=== PATIENT | female | born 1980 ===

== ENCOUNTER 2018-01-21 15:28 | Emergency (ER) | payer SELFPAY ==
[2018-01-21 16:28] VITALS: BMI 27.7
[2018-01-21 16:53] LABS: SQUAMOUS EPITHIAL 5 /hpf (0-5); URINE BACTERIA OCC (<OCC); URINE BILIRUBIN NEGATIVE (NEGATIVE); URINE BLOOD NEGATIVE (NEGATIVE); URINE CLARITY SLIGHTY-CLOUDY (Clear); URINE COLOR YELLOW (YELLOW); URINE GLUCOSE (UA) NEG (Normal); URINE LEUKOCYTE ESTERASE MOD Leu/uL (Negative); URINE PROTEIN NEGATIVE (NEGATIVE); URINE UROBILINOGEN 0.2-1.0 mg/dL (0.2-1.0)
--- NOTE | 2018-01-21 17:27 | OBHP ---
Datetime: 01/21/2018 17:17 Admit Comment, IP Provider: [id number] Pt is a 37 yo F IUP @ 26.5wk ULISES is 04/21/18 based on LMP of 07/15/17. Pt here for back pain and headaches. Pt states she starts to have B/L lower back pain and sharp headaches located on the fo rehead since yesterday, Pt was arguing with her boyfriend and now feels depressed. Denies domestic or verbal violence, feels safe to go back home if discharged. Pt denies vaginal bleeding, fevers, dizzi ness, headache, blurry vision, chest pain, SOB, nausea, vomiting, diarrhea, constipation, dysuria; Re ports good movements. PNP: [facility]- Dr. 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 Lungs: clear to auscultation bilaterally, no wheezing, rales or rhonchi Abdomen: Gravid, soft nontender to palpation, + BS Back: mid sacral and B/L lower back tenderness to palpation LE: no edema Psych: Depressed mood Heart Rate: 150, moderate 6-25bpm, category 1, 15x15 Speculum/Bimanual not performed A/P: Pt is a 37 yo F IUP @ 26.5wk here for back pain and headaches -Observe and monitor in OB ED -Monitor heart tracings -Tylenol 650mg Once -Urinalysis- Leuk-Mod, WBC-12, Occasional bacteria -D/c home on Macrobid -ED precautions given if fevers, increased contractions, vaginal bleeding, LOF come back to ED Case reviewed and discussed with Attending Ludmila Elmore M.D. PGY-[address] escalante: I have evaluated the patient independently and I agree with the above Pelvic Type - PN: Adequate Extremities - PN: Normal Abdomen - PN: Normal Back - PN: Abnormal Breast - PN: Not Done Lungs - PN: Normal Heart - PN: Normal Thyroid - PN: Not Done Neurologic - PN: Not Done HEENT - PN: Normal General - PN: Normal FHR - Baseline A Provider: 150 Comments, ACOG Physical Exam: Back: mid sacral, and B/L lower back tenderness to palpation EGA AdmitDate IP: 27.1 Vital Signs Provider: Reviewed; Within Normal Limits IP Chief Complaint: Maternal discomfort NICHD Variability Prov Fetus A: Moderate 6-25bpm NICHD Accel Fetus A IP Provider: 15X15 FHR Category Provider Fetus A: Category I NICHD Decel Fetus A IP Provider: None Genitourinary Exam: Not Done DTRs - PN: Not Done
--- NOTE | 2018-01-21 17:30 | OBDCSUM ---
Datetime: 01/21/2018 17:27 Discharged to, Provider: Home Follow up at, Provider: clinic Disch Instr Activity: Normal activity Disch Instr Diet: Regular Discharge Instructions, Provider: Routine instructions given Discharge Time: 01/21/2018 17:27 Follow up in weeks, Provider: 01/25 Disch Referrals: None Contraception discussed, Prov: No Discharge Diagnosis Prov Other: UTI
[2018-01-21 23:06] VITALS: BP 104/62; PULSE 89; RESP 18; TEMP 97.4; O2SAT 97
== END 2018-01-21 17:46 | disposition home or self-care (01) ==
LOC: H.EROB2 15:28 → H.EROB 15:56 → H.EROB2 17:46
DX: O26.92 Pregnancy related conditions, unspecified, second trimester (principal); M54.5 Low back pain; R51 Headache; Z3A.26 26 weeks gestation of pregnancy

== ENCOUNTER 2018-04-18 16:40 | Emergency (ER) | payer SELFPAY ==
[2018-03-25 18:12] VITALS: BMI 27.7
[2018-04-18 22:05] VITALS: BP 124/81; PULSE 81; TEMP 97.5; O2SAT 99
--- NOTE | 2018-04-19 10:02 | OBHP ---
Datetime: 04/18/2018 17:35 IP Adm Impression: Term, intrauterine IP Admit Plan: Observation/Evaluation Admit Comment, IP Provider: 37 yo with IUP at 39+4 wk based on lmp presents to [facility] with CTX jeffrey 5-6 minutes and loss of mucus plug per the vagina at 1 p.m. Reports she feels well. Denies vagi nal bleeding and loss of fluid per the vagina. Denies chest pain, dyspnea, change in vision, headache , nausea, and vomiting. ROS: negative except for stated above in HPI Obhx: 3 previous NSVDs, no complications. Follows at [facility]- Dr. Abbasi 2009- female 6 lbs 2000 - male 6 lbs 2005- male 6 lbs PMH: Denies PSH: Denies Medications: PNV Allergies: NKDA Social hx: Denies tobacco, alcohol or drug use. Family history: Not significant Labs: from 02/23/18: HIV: negative; GBS: negative; Gc/Cl: negative P.E: Vitally stable at this time. Patient is resting comfortably in her hospital bed. EFM: reactive NST Heart: S1 And S2 appreciated on exam. Lungs: Clear auscultation bilaterally. No wheezes, rhonchi or crackles. Abdomen: Gravid, soft, non-tender to palpation. Normo-active bowel sounds. SVE: 1cm ASSESSMENT/PLAN: 37 yo with IUP of 39+4 wks based on LMP presents for CTX and mucus plug - NST reactive- category 1 tracing; contractions every 8 minute - Patient given labor precautions at this time. - Patient stable for discharge at this time. - Appointment with [facility] 04/22/18. Patient was told to go to that appointment. Discussed with Dr. Ayush Lei, PGY1 Pelvic Type - PN: Adequate Extremities - PN: Normal Abdomen - PN: Normal Back - PN: Normal Breast - PN: Not Done Lungs - PN: Normal Heart - PN: Normal Thyroid - PN: Normal Neurologic - PN: Normal HEENT - PN: Normal General - PN: Normal FHR - Baseline A Provider: 145 EGA AdmitDate IP: 39.4 Vital Signs Provider: Reviewed; Within Normal Limits IP Chief Complaint: Uterine contractions; Maternal discomfort NICHD Variability Prov Fetus A: Moderate 6-25bpm NICHD Accel Fetus A IP Provider: 15X15 FHR Category Provider Fetus A: Category I NICHD Decel Fetus A IP Provider: None Dilatation, Provider: 1 Genitourinary Exam: Normal DTRs - PN: Normal
== END 2018-04-18 17:55 | disposition home or self-care (01) ==
LOC: H.EROB2 16:40
DX: O26.93 Pregnancy related conditions, unspecified, third trimester (principal); R10.2 Pelvic and perineal pain; Z3A.39 39 weeks gestation of pregnancy; O47.1 False labor at or after 37 completed weeks of gestation

== ENCOUNTER 2018-04-19 11:08 | Inpatient (IN) | payer MEDICAID, SELFPAY ==
[2018-04-19 11:42] VITALS: BMI 29.9
--- NOTE | 2018-04-19 11:54 | OBADHP ---
Datetime: 04/19/2018 11:44 Admit Comment, IP Provider: 37yo @ 39w5d reports to the labor and delivery complaining of pelvi c pressure and pain. She denies any vaginal bleeding or leakage of fluid. Patient was seen yesterday for irregular labor. She returns today for same complaints. O; Afebrile Heart: RRR Chest : CTA B/L Abd: Soft, NT, BS- present FHR- Category 1 TOCO: Irregular 2-6 SVE: /-2, Cephalic, Membranes Assessment: Intrauterine at 39wks Labor Reassuring Maternal status. Plan: Admit to labor and delivery Monitor the progress of labor. IP Chief Complaint: Uterine contractions; Maternal discomfort EGA AdmitDate IP: 39.5 IP Adm Impression: Term, intrauterine ; Active labor; Intact Membranes IP Admit Plan: Admit to unit; Initiate labor protocol Datetime: 04/18/2018 17:35 Pelvic Type - PN: Adequate Extremities - PN: Normal Abdomen - PN: Normal Back - PN: Normal Breast - PN: Not Done Lungs - PN: Normal Heart - PN: Normal Thyroid - PN: Normal Neurologic - PN: Normal HEENT - PN: Normal General - PN: Normal FHR - Baseline A Provider: 145 Vital Signs Provider: Reviewed; Within Normal Limits NICHD Variability Prov Fetus A: Moderate 6-25bpm NICHD Accel Fetus A IP Provider: 15X15 FHR Category Provider Fetus A: Category I NICHD Decel Fetus A IP Provider: None Dilatation, Provider: 1 Genitourinary Exam: Normal DTRs - PN: Normal Datetime: 01/21/2018 17:17 Comments, ACOG Physical Exam: Back: mid sacral, and B/L lower back tenderness to palpation
--- NOTE | 2018-04-19 11:54 | OBHP ---
Datetime: 04/19/2018 11:44 IP Adm Impression: Term, intrauterine ; Active labor; Intact Membranes IP Admit Plan: Admit to unit; Initiate labor protocol Admit Comment, IP Provider: 37yo @ 39w5d reports to the labor and delivery complaining of pelvi c pressure and pain. She denies any vaginal bleeding or leakage of fluid. Patient was seen yesterday for irregular labor. She returns today for same complaints. O; Afebrile Heart: RRR Chest : CTA B/L Abd: Soft, NT, BS- present FHR- Category 1 TOCO: Irregular 2-6 SVE: 390/-2, Cephalic, Membranes Assessment: Intrauterine at 39wks Labor Reassuring Maternal status. Plan: Admit to labor and delivery Monitor the progress of labor. EGA AdmitDate IP: 39.5 IP Chief Complaint: Uterine contractions; Maternal discomfort
[2018-04-19] MEDS ORDERED: Oxytocin 30 UNIT 30 UNITS/500 ML BAG IV ONE ×2 (11:56)
[2018-04-19] MEDS ORDERED: Lactated Ringer's 1,000 ML IV SCH (12:00)
[2018-04-19] MEDS ORDERED: OXYTOCIN/0.9 % NS 20 UNIT/1,000 ML BAG IV SCH (13:00)
[2018-04-19 13:36] LABS: BASO % 0.5 % (0.0-2.0); EOS % 0.3 % (0.0-4.0); HEMOGLOBIN 13.6 g/dL (12.0-16.0); LYMPH # 1.7 K/uL (1.0-4.3); LYMPH % 20.2 % (20.0-40.0); MEAN CELL VOLUME 88.9 fl (81.0-99.0); MEAN CORPUSCULAR HEMOGLOBIN 29.3 pg (27.0-31.0); MEAN PLATELET VOLUME 9.7 fl (7.2-11.7); MONO # 0.7 K/uL (0.0-0.8); MONO % 8.2 % (0.0-10.0); NEUT # 6.1 K/uL (1.8-7.0); NEUT % 70.8 % (50.0-75.0); RBC 4.64 Mil/uL (3.80-5.20); WHITE BLOOD COUNT 8.6 K/uL (4.8-10.8)
[2018-04-19] MEDS ORDERED: Fentanyl/Bupivacaine HCl 250 ML EPI ONE (13:50)
[2018-04-19] MEDS ORDERED: Bupivacaine HCl 0.5% PF (30 ml) Inj ONE (14:06)
[2018-04-19] MEDS ORDERED: Oxycodone/Acetaminophen 5/325 mg Tab PO PRN (17:26)
[2018-04-19] MEDS ORDERED: Benzocaine/Menthol SPRAY TOP PRN (17:26)
--- NOTE | 2018-04-20 07:26 | OBPPN ---
Datetime: 04/20/2018 06:22 PP Pain Prov: Within normal limits PP Nausea Prov: Denies PP Flatus Prov: Yes PP BM Prov: No PP Breasts Prov: Not Done PP Heart Prov: Normal PP Lungs Prov: Normal PP Abdomen/Uterus Prov: Normal PP Lochia Prov: Normal PP Vulva/Perineum Prov: Not Done PP CVA Tenderness Prov: Normal PP Extremities Prov: Normal PP C/S Incision Prov: Not Applicable PP Progress Prov: Normal PP Impression Prov: Normal progression PP Plan Prov: Continue present management PP Progress Note Prov: S: 27 yo s/p on 04/19/18, PPD1. Pt was seen and examined at bedsid e this AM. No overnight events. Pain is minimal. Ambulating and tolerating PO diet without difficulty . Breast and bottle feeding. Lochia < menses. +Flatus/-BM. Denies dizziness, orthostatic changes, ch colton in vision, palpitations, chest pain, fever, chills, diarrhea, nausea and vomiting. O: VS: Stable overnight GEN: NAD Cardio: S1S2, no murmurs Lungs: clear breath sounds b/l, no wheezing Abdomen: BS+, appropriate tenderness to palpation. Uterus is firm and at the level of the umbilic us. EXT: No edema, calves non-tender NEURO/PSYCH: AAOx3, no grossly focal deficits, preserved affect and mood. H/H: aCBC: 13.6/41.3; pCBC: 10.6/31.5 Assessment/Plan: 27 yo s/p on 04/19/18, PPD1. Pt remains afebrile, tolerating pain. -Regular diet -Anticipating d/c on 04/21 -Continue with current management -Encourage and ambulating -Ibuprofen 600mg q6 for pain Case discussed with Dr Elaine Priest PGY1 OB Hospitalist Addendum: Pt seen and examined by me. Agree w/ above. PPD 1 s/p , breast and ángela ttle feeding, c/o pain. Rec that she take motrin. (ES) IP PP Procedures: None Vital Signs Provider PP: Reviewed; Within Normal Limits
[2018-04-20 08:35] LABS: BASO % 0.5 % (0.0-2.0); EOS % 0.3 % (0.0-4.0); HEMOGLOBIN 12.1 g/dL (12.0-16.0); LYMPH # 1.9 K/uL (1.0-4.3); LYMPH % 19.7 % (20.0-40.0); MEAN CELL VOLUME 88.3 fl (81.0-99.0); MEAN CORPUSCULAR HEMOGLOBIN 29.3 pg (27.0-31.0); MEAN CORPUSCULAR HGB CONC 33.1 g/dL (33.0-37.0); MEAN PLATELET VOLUME 9.2 fl (7.2-11.7); MONO # 0.7 K/uL (0.0-0.8); NEUT % 72.5 % (50.0-75.0); NRBC % 0.1 % (0.0-0.0); RBC 4.15 Mil/uL (3.80-5.20); RED CELL DISTRIBUTION WIDTH 14.8 % (11.5-14.5); WHITE BLOOD COUNT 9.7 K/uL (4.8-10.8)
--- NOTE | 2018-04-21 10:29 | OBDCSUM ---
Datetime: 04/21/2018 07:22 Discharged to, Provider: Home Follow up at, Provider: [facility] Disch Instr Activity: Normal activity Disch Instr Diet: Regular Discharge Instructions, Provider: Routine instructions given Discharge Diagnosis, Provider: Term Delivered Discharge Time: 04/21/2018 12:00 Follow up in weeks, Provider: 4-6 weeks Disch Referrals: None Contraception discussed, Prov: Yes Disch Activity Restrictions: No exercising; No lifting; No sexual activity; Nothing in vagina - Inte rcourse, tampons, douche Discharge Comment, Provider: Discharge Summary EGA: 39+5 wks Diagnosis: S/P Summary of : 27y/o , 39+5 wks S/P on 04/19/18 @ 1541. L_D summary: Pt is s/p . Pain was well controlled with pain meds. No nausea. Tolerated regular diet well. Passing flatus, voiding well w/o difficulties. Breast feeding without difficulty. Lochia is similar to menses volume. DOL: 04/19/18 @1541 NB: Male : 9 Weight: 3100 gm Lochia= menses, mild pain, controlled with medications Blood type: O+, Antibody Neg CBC pp: 12.1/36.6 Discharge Date: 04/21/2018 Time 10:00 AM Discharge Instructions: -Encourage -Encourage ambulation -Ibuprofen for mild-moderate pain PRN -Continue vitamins at home - ED precautions: If excessive bleeding, pain that does not get relief, fever >100.4, palpitations , SOB, CP or other concerning symptom go to the ED. - PT was urged if feeling sad, mood swing, depression, neglect of baby, suicidal thoughts, homicid al thoughts go to ER or call 911 for help - Pt should go to her Primary care doctor if have difficulty with breast feeding - F/U at [facility] in 4-6 weeks for checkup. Contraception after Delivery: Undecided
[2018-04-21 19:24] VITALS: BP 98/58; PULSE 78; RESP 18; TEMP 98.2; O2SAT 98
--- NOTE | 2018-04-22 12:14 | OBPPN ---
Datetime: 04/21/2018 07:21 PP Pain Prov: Within normal limits PP Nausea Prov: Denies PP Flatus Prov: Yes PP BM Prov: Yes PP Breasts Prov: Not Done PP Heart Prov: Normal PP Lungs Prov: Normal PP Abdomen/Uterus Prov: Normal PP Lochia Prov: Normal PP Vulva/Perineum Prov: Not Done PP CVA Tenderness Prov: Not Done PP Extremities Prov: Normal PP C/S Incision Prov: Not Applicable PP Progress Prov: Normal PP Impression Prov: Normal progression PP Plan Prov: Discharge PP Progress Note Prov: S: 27 yo s/p on 04/19/18, PPD2. Pt was seen and examined at bedsid e this AM. No overnight events. Pain is minimal. Ambulating and tolerating PO diet without difficulty . Breast and bottle feeding. Lochia < menses. +Flatus/-BM. Denies dizziness, orthostatic changes, ch colton in vision, palpitations, chest pain, fever, chills, diarrhea, nausea and vomiting. O: VS: Stable overnight GEN: NAD Cardio: S1S2, no murmurs Lungs: clear breath sounds b/l, no wheezing Abdomen: BS+, appropriate tenderness to palpation. Uterus is firm and at the level of the umbilic us. EXT: No edema, calves non-tender NEURO/PSYCH: AAOx3, no grossly focal deficits, preserved affect and mood. H/H: aCBC: 13.3/41.3 pCBC: 12.1/36.6 Assessment/Plan: 27 yo s/p on 04/19/18, PPD2. Pt remains afebrile, tolerating pain. -Regular -Continue with current management -Encourage and ambulating -Ibuprofen 600mg q6 for pain - d/c today Anni Reyes Attending Note: Patient was discussed with the resident and I agree with the above assessment. Vital Signs Provider PP: Reviewed
--- NOTE | 2018-04-22 12:14 | OBDS ---
DELIVERY PERSONNEL Delivery Doctor: Donald Henry MD Quality Control Engineering Technician: Dana Sparks RN MATERNAL INFORMATION Delivery Anesthesia: Epidural Medications in Delivery: Pitocin 30 mu/500 mL Estimated Blood Loss (ml): 100 Placenta Cultured: No Maternal Complications: None Provider Comments: Uncomplicated Spontaneous delivery of a viable male with BW of 3100g and A PGAR scores of 9 and 9 over an intact perineum. EBL-250mls Patient tolerated the procedure well. LABOR SUMMARY EDC: 04/21/2018 00:00 No. Babies in Womb: 1 Attempted: No Labor Anesthesia: Epidural LABOR INFORMATION Reason for Induction: Not Applicable Onset of Labor: 04/19/2018 09:30 Complete Dilatation: 04/19/2018 15:27 Oxytocin: N/A Group B Beta Strep: Negative Antibiotics # of Doses: 0 Antibiotics Time of Last Dose: n/a Steroids Given: None Reason Steroids Not Administered: Not Applicable MEMBRANES Membranes Rupture Method: Spontaneous Rupture of Membranes: 04/19/2018 15:27 Length of Rupture (hrs): 0.23 Amniotic Fluid Color: Clear Amniotic Fluid Amount: Small Amniotic Fluid Odor: None STAGES OF LABOR Stage 1 hrs: 5 Stage 1 min: 57 Stage 2 hrs: 0 Stage 2 min: 14 Stage 3 hrs: 0 Stage 3 min: 5 Total Time in Labor hrs: 6 Total Time in Labor min: 16 VAGINAL DELIVERY Episiotomy: None Laceration Extension: N/A Laceration Type: None Initial Vag Sponge Count: 5 Final Vag Sponge Count: 5 Initial Vag Sharps Count: 0 Final Vag Sharps Count: 0 Sponge Count Correct: Yes Sharps Count Correct: N/A BABY A INFORMATION Infant Delivery Date/Time: 04/19/2018 15:41 (Annotations: Data stored by N on behalf of user) Method of Delivery: Vaginal Born in Route : No : N/A Forceps: N/A Vacuum Extraction: N/A Shoulder Dystocia : No SHOULDER DYSTOCIA BABY A Delivery Date/Time: 04/19/2018 15:41 (Annotations: Data stored by [facility] on behalf of user) PRESENTATION/POSITION BABY A Presentation: Cephalic Cephalic Presentation: Vertex Breech Presentation: N/A PLACENTA INFORMATION BABY A Placenta Delivery Time : 04/19/2018 15:46 Placenta Method of Delivery: Spontaneous Placenta Status: Delivered SCORES BABY A Heart Rate 1 min: >100 bpm Resp Effort 1 min: Good Cry Reflex Irritability 1 min: Cough or Sneeze or Pulls Away Muscle Tone 1 min: Active Motion Color 1 min: Body [place], Extremities Blue Resuscitation Effort 1 min: N/A SCORE 1 MIN: 9 Heart Rate 5 min: >100 bpm Resp Effort 5 min: Good Cry Reflex Irritability 5 min: Cough or Sneeze or Pulls Away Muscle Tone 5 min: Active Motion Color 5 min: Body [place], Extremities Blue Resuscitation Effort 5 min: N/A SCORE 5 MIN: 9 INFORMATION BABY A Gestational Age at Delivery: 39.5 Gestational Status: Term Infant Outcome : Liveborn Condition : Stable Sex: Male WEIGHT/LENGTH BABY A Birthweight (gms): 3100 Infant Weight (lb): 6 Infant Weight (oz): 13 CORD INFORMATION BABY A No. Cord Vessels: 3 Nuchal Cord : Around Neck x1, Loose Cord Blood Taken: Yes Suction: Mouth; Nose
== END 2018-04-21 13:06 | disposition home or self-care (01) | DRG 560 ==
LOC: H.EROB2 11:08 → H.EROB 11:39 → H.EROB2 11:55 → H.EROB 11:56 → H.OB/GYN 21:34
PROVIDERS: ADMIT Obstetrics & Gynecology; ATTEND Obstetrics & Gynecology
PROC: 10E0XZZ Delivery of Products of Conception, External Approach (ICD-10-PCS; principal; 2018-04-19)
PROC: 4A1HXCZ Monitoring of Products of Conception, Cardiac Rate, External Approach (ICD-10-PCS; 2018-04-19)
DX: O69.81X0 Labor and delivery complicated by cord around neck, without compression, not applicable or unspecified (principal); O62.2 Other uterine inertia; Z37.0 Single live birth; Z3A.39 39 weeks gestation of pregnancy